=== PATIENT | female | born 1935 | race Caucasian/White ===

== ENCOUNTER 2016-11-19 11:43 | Emergency (ER) | payer MEDICARE, OTHER ==
[2016-11-19] MEDS ORDERED: NS 0.9% 1000 ML* 2,000 ML IV ONE (11:56)
[2016-11-19 13:19] LABS: Hematocrit 39 % (35-47); Hemoglobin 12.6 g/dl (12.0-16.0); Mean Corpuscular HGB Conc 32 g/dl (31-36); Mean Corpuscular Hemoglobin 30 pg (27-31); Mean Corpuscular Volume 92 fL (80-97); Mean Platelet Volume 8 um3 (7.4-10.4); Red Blood Count 4.26 10^6/ul (4.0-5.4); Red Cell Distribution Width 14 % (10.5-15); White Blood Count 11.5 10^3/ul (3.5-10.8)
[2016-11-19 13:38] LABS: Albumin 3.3 g/dL (3.2-5.2); BUN/Creatinine Ratio 28.8 (8-20); EGFR African American 146.3 (>60); EGFR Non-African American 113.8 (>60); Globulin 3.3 g/dL (2-4); Potassium 3.4 mmol/L (3.5-5.0); Total Bilirubin 0.7 mg/dL (0.2-1.0); Total Protein 6.6 g/dL (6.4-8.9); Troponin I 0.01 ng/mL (<0.04)
[2016-11-19 15:35] LABS: Urine Bacteria 1+ (Absent); Urine Bilirubin Negative (Negative); Urine Glucose Negative (Negative); Urine Nitrite Negative (Negative)
[2016-11-19] MEDS ORDERED: Levofloxacin TAB* 500 MG PO ONE (19:57)
--- NOTE | 2016-11-19 20:40 | ED ---
Dorian Combs Aidan, justinibed for Evaristo Ramirez on 11/19/16 at 2020 . Progress - Progress Note Progress Note: The patient will be discharged with UTI and dehydration. Course/Dx - Diagnoses Provider Diagnoses: Dementia The documentation as recorded by the Dorian crain Aidan accurately reflects the service I personally performed and the decisions made by James morrow Emmanuel.
[2016-11-19 22:21] VITALS: BP 133/82
--- NOTE | 2016-11-20 09:22 | RAD ---
INDICATION: Tachypnea and tachycardia evaluate for pneumonia. COMPARISON: Comparison is made with prior chest x-ray study from June 26, 2016. TECHNIQUE: A portable view of the chest was obtained. FINDINGS: Cardiac and mediastinal contours appear to be within normal limits. The lungs are clear. No pleural effusion is seen. IMPRESSION: NO EVIDENCE FOR ACUTE DISEASE.
== END 2016-11-19 22:34 ==
LOC: ED 11:43
DX: F03.90 Unspecified dementia, unspecified severity, without behavioral disturbance, psychotic disturbance, mood disturbance, and anxiety (principal)
CPT/HCPCS: 36415; 71010; 80053; 81003; 81015; 83605; 84484; 85025; 85610; 85730; 87040; 87086; 93005